=== PATIENT | female | born 1980 | race African-American/Black ===

== ENCOUNTER 2018-09-29 08:35 | Inpatient (IN) | payer OTHER ==
[~2018-09-29] VITALS: Ht 157.5 cm; Wt 80.8 kg
[2018-09-29 08:55] VITALS: BP 108/66; PULSE 74; Ht 157.5 cm; Wt 80.8 kg
[2018-09-29] MEDS ORDERED: PNV11TAB PO (08:56)
[2018-09-29] MEDS ORDERED: BUTORPHANOL 1 MG INJ IV PRN (10:30)
[2018-09-29] MEDS ORDERED: BUTORPHANOL 2 MG INJ IV PRN (10:30)
[2018-09-29] MEDS ORDERED: CARBOPROST 250 MCG INJ IM PRN (10:30)
[2018-09-29] MEDS ORDERED: METHYLERGONOVINE 0.2 MG INJ IM PRN (10:30)
[2018-09-29] MEDS ORDERED: AMPICILLIN 2 GM/NS (PMX) 100 ML IV ONE ×2 (10:30→19:00)
[2018-09-29] MEDS ORDERED: OXYTOCIN 30 UNITS/LR 500 ML IV SCH ×2 (10:30)
[2018-09-29] MEDS ORDERED: LIDOCAINE 1% (MPF) 30 ML INJ INJ PRN (10:30)
[2018-09-29] MEDS ORDERED: MISOPROSTOL 200 MCG TAB PR PRN (10:30)
[2018-09-29] MEDS ORDERED: OXYTOCIN 30 UNITS/LR 500 ML IV PRN (10:30)
[2018-09-29] MEDS: LACTATED RINGER'S 1,000 ML IV SCH ×2 (10:58→15:10)
[2018-09-29] MEDS ORDERED: AMPICILLIN 1 GM/NS (PMX) 50 ML IV SCH (14:30)
[2018-09-29] MEDS: AMPICILLIN 1 GM/NS (PMX) 50 ML IV SCH (23:16)
[2018-09-30] MEDS: LACTATED RINGER'S 1,000 ML IV SCH ×4 (00:18→22:57)
[2018-09-30] MEDS ORDERED: OXYTOCIN 30 UNITS/LR 500 ML IV SCH (02:00)
[2018-09-30] MEDS: AMPICILLIN 1 GM/NS (PMX) 50 ML IV SCH ×6 (03:11→22:59)
[2018-09-30] MEDS ORDERED: FENTAnyl 2MCG/ML-ROPIV 0.2% 100 ML ONE (11:00)
--- NOTE | 2018-09-30 11:11 | PREAC ---
Date/Time of Note Date/Time of Note DATE: 09/30/18 TIME: 11:09 Anesthesia Eval and Record Evaluation Time Pre-Procedure Interview DATE: 09/30/18 TIME: 10:30 Age 38 Sex female NPO: 8 hrs Preoperative diagnosis iup @ 39 wks., , labor Planned procedure fred Past Medical History Past Medical History: Includes : : (1), Para: (0), Gestational age: (39 wks.) Surgery & Anesthesia Issues No known issue Meds Anticoagulation: No Beta Em within 24 hr: No Reason Beta Em not given: Pt. not on B-Em Reported Medications [id number] ( ) 1 Each Tablet, 1 TAB PO DAILY, TAB 09/29/18 Current Medications Lactated Ringer's 1,000 ml @ 125 mls/hr Q8H IV Last administered on 09/30/18at 09:35; Admin Dose 125 MLS/HR; Start 09/29/18 at 10:19 Butorphanol Tartrate (Stadol) 1 mg Q2H PRN IV .PAIN; Start 09/29/18 at 10:30 Butorphanol Tartrate (Stadol) 2 mg Q2H PRN IV .PAIN; Start 09/29/18 at 10:30 Lidocaine (Xylocaine 1% (Mpf)) 30 ml ONCE PRN INJ .EPISIOTOMY; Start 09/29/18 at 10:30 Oxytocin/Lactated Ringer's 500 ml @ 500 mls/hr ONCE POST IV ; Start 09/29/18 at 10:30 Oxytocin/Lactated Ringer's 500 ml @ 125 mls/hr POST IV ; Start 09/29/18 at 10:30 Oxytocin/Lactated Ringer's 500 ml @ 0 mls/hr ONCE PRN IV .VAGINAL BLEEDING; Start 09/29/18 at 10:30 Methylergonovine Maleate (Methergine) 0.2 mg ONCE PRN IM .VAGINAL BLEEDING; Start 09/29/18 at 10:30 Carboprost Tromethamine (Hemabate) 250 mcg ONCE PRN IM .VAGINAL BLEEDING; Start 09/29/18 at 10:30 Misoprostol (Cytotec) 1,000 mcg ONCE PRN [place] .VAGINAL BLEEDING; Start 09/29/18 at 10:30 Ampicillin 50 ml @ 100 mls/hr Q4H IV Last administered on 09/30/18at 07:22; Admin Dose 100 MLS/HR; Start 09/29/18 at 23:00 Oxytocin/Lactated Ringer's 500 ml @ 0 mls/hr FOR AUGMENTATION IV Last administered on 09/30/18at 03:50; Admin Dose 1 MLS/HR; Start 09/30/18 at 02:00 Meds reviewed: Yes Allergies Coded Allergies: No Known Allergy (Unverified , 09/29/18) Allergies Reviewed: Yes Labs/Studies Labs Reviewed: Reviewed by anesthesiologist Result Diagram: 09/29/18 1040 test: Positive Pre-procedure Exam Last vitals Vital Signs Date Temp Pulse Resp B/P (MAP) Pulse Ox O2 O2 Flow FiO2 Time Delivery Rate 09/29/18 98.0 74 108/66 08:55 (80) Airway: Adequate mouth opening, Adequate thyromental dist Mallampati: Mallampati II Teeth: Normal Lung: Normal Heart: Normal ASA Physical Status ASA physical status: 2 Emergency: E Planned Anesthetic Neuraxial: Epidural Planned Pain Management Epidural, Local by surgeon Pre-operative Attestations Prior to commencing anesthesia and surgery, the patient was re-evaluated, there was verification of: *The patient's identity *The results of appropriate recent lab work and preoperative vital signs *The above evaluation not changing prior to induction *Anesthetic plan, risk benefits, alternative and complications discussed with patient/family; questions answered; patient/family understands, accepts and wishes to proceed. Enterprise Architect used WEST SIM MD Sep 30, 2018 11:11
--- NOTE | 2018-09-30 11:12 | PAC ---
Date/Time of Note Date/Time of Note DATE: 10/01/18 TIME: 15:00 Post-Anesthesia Notes Post-Anesthesia Note Last documented vital signs Vital Signs Date Temp Pulse Resp B/P (MAP) Pulse Ox O2 O2 Flow FiO2 Time Delivery Rate 09/29/18 98.0 74 108/66 08:55 (80) Activity: WNL Respiratory function: WNL Cardiovascular function: WNL Mental status: Baseline Pain reasonably controlled: Yes Hydration appropriate: Yes Nausea/Vomiting absent: Yes WEST SIM MD Sep 30, 2018 11:12
[2018-09-30] MEDS ORDERED: ONDANSETRON 4 MG INJ IV PRN (11:30)
[2018-09-30] MEDS ORDERED: NALOXONE (0.4 MG/ML) INJ IV PRN (11:30)
[2018-09-30] MEDS ORDERED: FENTAnyl 2MCG/ML-ROPIV 0.2% 100 ML BAG EPI SCH (11:30)
--- NOTE | 2018-09-30 21:23 | HP ---
Date/Time of Note Date/Time of Note DATE: 09/30/18 TIME: 21:10 OB - History Hx of Present Free Text/Dictation 38y.o primigravida at 39w1d here after SROM at 0500 on 09/29/18 with occsional uterine contractions Initial VE FTP/40/-2 with clear fluid ROM plus positive EFM CAT I tracing GBS neg admitted for pitocin augmentation. Chief Complaint: srom Estimated Due Date: Oct 05, 2018 : 1 Para: 0 Spontaneous : 0 Therapeutic : 0 Care: Good Care Ultrasounds: Normal mid trimester US Obstetrical Complications: None Medical Complications: None Past Family/Social History * Past Medical, Surgical, Family and Obstetric Histories reviewed from chart. Blood Type: A+ Rubella: not immune RPR/VDRL: Negative GBS Status: Negative HBsAG: Negative OB Admission Exam Vital Signs Vital Signs Vital Signs Date Temp Pulse Resp B/P (MAP) Pulse Ox O2 O2 Flow FiO2 Time Delivery Rate 09/29/18 98.0 74 108/66 08:55 (80) Physical Exam HEENT: WNL Heart: Rhythm Normal Lungs: Clear, Equal Abdomen: WNL Extremities: Normal Reflexes: Normal Cervical Dilatation: Fingertip Effacement: 50% Station: -3 Membranes: Ruptured Amniotic Fluid: Clear Heart Rate: 140's Accelerations: Accelerations Present Decelerations: No Decelerations Varibility: Moderate Contractions on Admission: >10 Minutes Apart Intensity: Mild Last 72 hours Lab Results CBC & BMP 09/29/18 10:40 OB Assessment/Plan Reason for admission: rupture of membranes Other Assessment: IUP 39w2d Plan: Other (augmentation) Induction Method: per Pitocin Protocol PRANEETH SCHILLING MD Sep 30, 2018 21:20
[2018-10-01] MEDS ORDERED: MINERAL OIL LIGHT 10 ML VIAL TOP ONE (01:30)
--- NOTE | 2018-10-01 02:14 | LDN ---
Date/Time of Note Date/Time of Note DATE: 10/01/18 TIME: 02:11 Delivery Summary of normal female with x1 nuchal cord Weeks of Gestation 39w4d Placenta Delivered: Spontaneously, Intact & Complete Meconium: none Episiotomy: Yes Indication for episiotomy expected laceration RMLE Perineal laceration: 0 Laceration repair: 00 ch gut Anesthesia type: Epidural Estimated blood loss: 200 Sponge & Needle done & correct: Yes All needle counts correct: Yes Any foreign bodies felt in the: No Infant Delivery Information Sex Infant Sex: female Apgars 1 Minute: 9 5 Minute: 9 10 Minute: 0 Suctioning Nose & mouth suctioned at kiesha: Yes Delee suction performed: Yes Umbilical Cord Umbilical cord with: 3 Vessels Cord presentations: nuchal cord Nuchal cord present X: 1 Cord Blood was obtained: Yes Mother & Baby Disposition Disposition Mom & Baby to Maternity; Good: Yes Mom transferred to: Other Baby to NICU: No () PRANEETH SCHILLING MD Oct 01, 2018 02:14
[2018-10-01] MEDS ORDERED: CARBOPROST 250 MCG INJ IM PRN (03:30)
[2018-10-01] MEDS ORDERED: BENZOCAINE 20% 56 ML SPRAY TOP PRN (03:30)
[2018-10-01] MEDS ORDERED: OXYCODONE/ASPIRIN (4.88/325) TAB PO PRN (03:30)
[2018-10-01] MEDS ORDERED: MISOPROSTOL 200 MCG TAB PR PRN (03:30)
[2018-10-01] MEDS ORDERED: ZOLPIDEM 5 MG TAB PO PRN (03:30)
[2018-10-01] MEDS ORDERED: OXYTOCIN 30 UNITS/LR 500 ML IV PRN (03:30)
[2018-10-01] MEDS ORDERED: WITCH HAZEL/GLYCERIN PAD PR PRN (03:30)
[2018-10-01] MEDS ORDERED: METHYLERGONOVINE 0.2 MG INJ IM PRN (03:30)
[2018-10-01] MEDS: IBUPROFEN 600 MG TAB PO SCH ×4 (04:02→23:24)
[2018-10-01 04:50] VITALS: BP 120/56; PULSE 57; RESP 18
[2018-10-01] MEDS: LANOLIN HPA 1 PKT TOP PRN ×2 (05:11→18:12)
[2018-10-01] MEDS: OXYCODONE/ASPIRIN (4.88/325) TAB PO PRN ×2 (09:03→15:35)
[2018-10-01] MEDS: SENNA/DOCUSATE NA (8.6MG/50MG) TAB PO SCH ×2 (09:03→21:26)
[2018-10-01 16:00] VITALS: BP 105/65; PULSE 76; RESP 18
[2018-10-01 20:00] VITALS: BP 107/69; PULSE 64; RESP 20
[2018-10-02 03:49] VITALS: BP 115/64; PULSE 72; RESP 20
[2018-10-02] MEDS: IBUPROFEN 600 MG TAB PO SCH ×4 (05:40→23:54)
[2018-10-02 08:00] VITALS: BP 100/68; PULSE 64; RESP 18
[2018-10-02] MEDS: SENNA/DOCUSATE NA (8.6MG/50MG) TAB PO SCH ×2 (09:35→21:09)
[2018-10-02] MEDS ORDERED: INFLUENZA VIRUS VACCINE 0.5 ML (DISPENSING) IM* ONE (10:00)
[2018-10-02 16:00] VITALS: BP 105/72; PULSE 61; RESP 18
[2018-10-02 20:00] VITALS: BP 104/66; PULSE 71; RESP 18
[2018-10-03 04:07] VITALS: BP 99/54; PULSE 54; RESP 18
[2018-10-03] MEDS: IBUPROFEN 600 MG TAB PO SCH ×2 (05:52→13:55)
[2018-10-03 07:50] VITALS: BP 94/53; PULSE 60; RESP 17
[2018-10-03] MEDS ORDERED: DIPHTH/TET/ACEL PERTUSS (ADULT) 0.5 ML VIAL IM* ONE (09:00)
[2018-10-03] MEDS: SENNA/DOCUSATE NA (8.6MG/50MG) TAB PO SCH (09:12)
--- NOTE | 2018-10-03 20:46 | PD.PPDC ---
BIRTH CERTIFICATE CLERK Discharge Instruction Diagnosis [id number] Final Diagnosis: Narfa0t s/p Condition [id number] Patient Condition: Ulvbf5o Stable Diet Lnilq8Up Diet: Yxkir5v Resume Regular Diet Activity/Restrictions [id number] Activity: Uziqb4d May Shower Uixef6El Restrictions: Ynsxn1o No Lifting No Sexual Activity Nothing in the Vagina No Thermal No Tampons, douche Follow-up Follow-up with Physician: 6, Week/Weeks Return to clinic for [id number] COMMERCIAL CREDIT ANALYST Instructions: Nalzs9l Fever greater than 101 Chills Worsening abdominal pain Excessive Vaginal Bleeding More than 2 pads per hour Unable to tolerate diet [id number] OB Instructions: Sgdsa9t Breast Tenderness Depression Blurried Vision Headache PRANEETH SCHILLING MD Oct 03, 2018 20:46
--- NOTE | 2018-10-03 20:48 | DS ---
Date/Time of Note Date/Time of Note DATE: 10/03/18 TIME: 20:47 Obstetrical Discharge Record Final Diagnosis Final Diagnosis: Term delivered Vaginal Delivery Obstetrical Delivery: Spontaneous, Episiotomy, Repaired Complications Augmentation: Yes Rupture of Membranes: No Condition on Discharge Physical Assessment Last Vitals: vss afebrile Voiding: Yes Bowel Movement: Yes Breast: Soft, non-tender Fundus: Firm Abdomen and Incision: n/a Episiotomy: healing ok Calf Tenderness: No Patient Condition: Stable PRANEETH SCHILLING MD Oct 03, 2018 20:48
== END 2018-10-03 14:10 | disposition home or self-care (01) | DRG 807 ==
LOC: L-D 08:35 → OBT 08:35 → L-D 10:15 → PP1 10-01 04:39
PROVIDERS: ADMIT Obstetrics & Gynecology; ATTEND Obstetrics & Gynecology
PROC: 10E0XZZ Delivery of Products of Conception, External Approach (ICD-10-PCS; principal; 2018-10-01)
PROC: 0W8NXZZ Division of Female Perineum, External Approach (ICD-10-PCS; 2018-10-01)
DX: O69.81X0 Labor and delivery complicated by cord around neck, without compression, not applicable or unspecified (principal); Z37.0 Single live birth; Z3A.39 39 weeks gestation of pregnancy
CPT/HCPCS: 62319; 76815; 84112; 85025; 85610; 85730; 86592; 86850; 86900; 86901; 87340; 88307; 90686; 90715; G0463; J0290; J2590; J3010; J7120